=== PATIENT | male | born 1950 | race Caucasian/White ===

== ENCOUNTER → 2020-03-31 | Outpatient (CLI) | payer MEDICARE, OTHER ==
[2020-02-05 06:11] VITALS: BP 143/57
[~2020-03-31] MED LIST: PRAVASTATIN SOD80 MG PO; TELMISARTAN80 MG PO
== END ==
LOC: RAD 13:26
DX: S99.912A Unspecified injury of left ankle, initial encounter (principal); M77.32 Calcaneal spur, left foot